=== PATIENT | female | born 1965 | race Native Hawaiian/Other Pacific Islander ===

== ENCOUNTER 2018-08-08 14:40 | Outpatient (CLI) | payer OTHER ==
[2018-08-08 15:34] LABS: PLATELET COUNT 382 K/uL (152-353)
[2018-08-08 15:40] LABS: POTASSIUM 2.7 mmol/L (3.6-5.2)
== END 2018-08-08 19:20 | disposition home or self-care (01) ==
LOC: LAB 14:40
PROVIDERS: Internal Medicine
DX: R78.81 Bacteremia (principal)
CPT/HCPCS: 80048; 85007; 85027

== ENCOUNTER 2018-08-15 13:23 | Outpatient (CLI) | payer OTHER ==
[2018-08-15 13:57] LABS: POTASSIUM 2.6 mmol/L (3.6-5.2)
[2018-08-15 14:42] LABS: PLATELET COUNT 454 K/uL (152-353)
== END 2018-08-15 20:58 | disposition home or self-care (01) ==
LOC: LAB 13:23
PROVIDERS: Hospitalist
DX: R78.81 Bacteremia (principal); J18.9 Pneumonia, unspecified organism
CPT/HCPCS: 80053; 85027; 85651; 86140

== ENCOUNTER 2018-08-22 12:17 | Outpatient (CLI) | payer OTHER ==
[2018-08-22 12:54] LABS: PLATELET COUNT 533 K/uL (152-353)
[2018-08-22 13:08] LABS: POTASSIUM 3.4 mmol/L (3.6-5.2)
== END 2018-08-22 19:45 | disposition home or self-care (01) ==
LOC: LAB 12:17
PROVIDERS: Hospitalist
DX: Z79.2 Long term (current) use of antibiotics (principal); Z45.2 Encounter for adjustment and management of vascular access device
CPT/HCPCS: 80053; 85027; 85651; 86140

== ENCOUNTER 2018-09-13 14:19 | Outpatient (CLI) | payer OTHER | END 2018-09-13 23:55 | disposition home or self-care (01) | LOC: LAB 14:19 | DX: A41.9 Sepsis, unspecified organism (principal); I38 Endocarditis, valve unspecified | CPT/HCPCS: 87040; 87077; 87185; 87186; 87205 ==

== ENCOUNTER 2018-10-10 13:33 | Outpatient (CLI) | payer OTHER ==
[2018-10-10 13:48] LABS: PLATELET COUNT 376 K/uL (152-353)
== END 2018-10-10 20:33 | disposition home or self-care (01) ==
LOC: LAB 13:33
PROVIDERS: Hospitalist
DX: A41.81 Sepsis due to Enterococcus (principal); Z79.2 Long term (current) use of antibiotics
CPT/HCPCS: 80053; 85027; 85651; 86140